=== PATIENT | female | born 1995 | race Caucasian/White ===

== ENCOUNTER 2017-09-16 11:05 | Emergency (ER) | payer SELFPAY | END 2017-09-16 12:38 | disposition home or self-care (01) | LOC: D.ER 11:05 | DX: J11.1 Influenza due to unidentified influenza virus with other respiratory manifestations (principal); F17.200 Nicotine dependence, unspecified, uncomplicated ==

== ENCOUNTER 2018-10-23 13:04 | Emergency (ER) | payer SELFPAY ==
[~2018-10-23] VITALS: Ht 175.3 cm; Wt 118.2 kg
[2018-10-23 13:06] VITALS: Ht 175.3 cm; Wt 118.2 kg
[2018-10-23 13:50] LABS: APPEARANCE HAZY (CLEAR); COLOR YELLOW (YELLOW); HCG URINE NEGATIVE (NEGATIVE)
[2018-10-23 13:51] LABS: BILIRUBIN NEGATIVE (NEGATIVE); GLUCOSE NEGATIVE (NEGATIVE); KETONE NEGATIVE (NEGATIVE); NITRITE NEGATIVE (NEGATIVE); PROTEIN NEGATIVE (NEGATIVE); UROBILINOGEN NORMAL (NORMAL)
[2018-10-23] MEDS ORDERED: PREDNISONE20 MG PO (15:01)
[2018-10-23] MEDS ORDERED: BACLOFEN20 M1 PO (15:01)
[2018-10-23 15:22] VITALS: BP 143/87
== END 2018-10-23 15:22 | disposition home or self-care (01) ==
LOC: D.ER 13:04
PROVIDERS: Family Medicine
DX: S39.012A Strain of muscle, fascia and tendon of lower back, initial encounter (principal); X58.XXXA Exposure to other specified factors, initial encounter; Y93.89 Activity, other specified; Y92.89 Other specified places as the place of occurrence of the external cause; M62.838 Other muscle spasm; F17.200 Nicotine dependence, unspecified, uncomplicated

== ENCOUNTER 2019-07-11 18:52 | Emergency (ER) | payer SELFPAY ==
[~2019-07-11] VITALS: Ht 175.3 cm; Wt 129.6 kg
[~2019-07-11 18:52] MED LIST: BACLOFEN20 M1 PO; PREDNISONE20 MG PO
[2019-07-11 19:27] VITALS: Ht 175.3 cm; Wt 129.6 kg
[2019-07-11] MEDS ORDERED: AMOXICILLIN500 M1 PO (20:12)
[2019-07-11] MEDS ORDERED: ROBITUSSIN DM 110 ML PO (20:12)
[2019-07-11 20:40] VITALS: BP 119/77
== END 2019-07-11 20:40 | disposition home or self-care (01) ==
LOC: D.ER 18:52
DX: J02.9 Acute pharyngitis, unspecified (principal); J40 Bronchitis, not specified as acute or chronic; J06.9 Acute upper respiratory infection, unspecified; F17.200 Nicotine dependence, unspecified, uncomplicated